=== PATIENT | female | born 1995 | race Caucasian/White ===

== ENCOUNTER 2017-04-01 13:22 | Outpatient (RCR) | payer OTHER ==
[2017-04-01 09:42] LABS: PLATELET COUNT, AUTOMATED 330 K/uL (150-450)
[2017-04-01 11:01] LABS: LDL CHOLESTEROL 126 mg/dl
[~2017-04-01 13:22] MED LIST: AZIT-1 PO; BUPR200T18 PO; DOCU-202 PO; PER PO; PRED20TA6 PO; Return to work; TRAZ150T8 PO; [UNRECOGNIZED DRUG - SUPPLY]
--- NOTE | 2017-04-05 17:31 | RADIOLOGY IMAGING REPORT ---
FACILITY: [facility] - [place] PATIENT NAME: Armin Coto : 1995 MR: [id number] V: [id number] EXAM DATE: ORDERING PHYSICIAN: DAVID BURRIS TECHNOLOGIST: Location: [facility] - [place] Patient: Armin Coto : 1995 Visit/Account:[id number] Date of Sevice: 04/05/2017 TRANSVAGINAL NON-OB HISTORY: Pelvic pain, urinary tract alignment surgery TECHNIQUE: Transvaginal ultrasound pelvis. COMPARISON: None. FINDINGS: Uterus: ; 6.6 cm length x 3.2 cm AP x 5.2 cm transverse. Myometrium: Unremarkable. Endometrium: Is an IUD that appears to been good position within the endometrial canal.; double thick ness 5.6 mm. Cervix: Grossly negative. Ovaries: Right - 4.7 x 2.6 x 4.9 cm. There are two simple cysts in the right ovary one measuring 2.4 devan ters in diameter one measuring 1.5 cm in diameter Left - 3.7 x 3.2 x 2.7 cm Blood flow is documented in each ovary by duplex Doppler ultrasound. Adnexa: Grossly unremarkable. Free pelvic fluid: None. IMPRESSION: IUD appears to be in good position within the endometrial canal. There are two simple right ovarian cysts measuring 2.4 cm and 1.5 cm in diameter Report Dictated By: Lise Khan MD at 04/05/2017 4:55 PM Report E-Signed By: Lise Khan MD at 04/05/2017 5:26 PM [id number]
== END 2017-04-05 18:00 | disposition home or self-care (01) ==
LOC: EDSTATUS 13:22 → US 13:22
PROVIDERS: ATTEND Nurse Practitioner Primary Care
DX: R10.2 Pelvic and perineal pain (principal); Z97.5 Presence of (intrauterine) contraceptive device; N83.201 Unspecified ovarian cyst, right side
CPT/HCPCS: 36415; 76830; 82040; 82247; 82310; 82374; 82435; 82465; 82565; 82627; 82947; 83718; 84075; 84132; 84146; 84155; 84295; 84403; 84439; 84443; 84450; 84460; 84478; 84480; 84520; 84703; 85025

== ENCOUNTER → 2017-04-13 | Outpatient (CLI) | payer OTHER | LOC: LAB 10:09 | PROVIDERS: ATTEND Nurse Practitioner Primary Care | DX: E05.90 Thyrotoxicosis, unspecified without thyrotoxic crisis or storm (principal) | CPT/HCPCS: 36415; 86376; 86800 ==

== ENCOUNTER → 2017-04-26 | Outpatient (CLI) | payer OTHER | LOC: LAB 16:41 | PROVIDERS: ATTEND Surgery | DX: D22.4 Melanocytic nevi of scalp and neck (principal) | CPT/HCPCS: 88305 ==

== ENCOUNTER 2017-05-04 00:55 | Outpatient (RCR) | payer OTHER ==
--- NOTE | 2017-05-05 16:56 | RADIOLOGY IMAGING REPORT ---
FACILITY: [facility] - [place] PATIENT NAME: Armin Coto : 1995 MR: [id number] V: [id number] EXAM DATE: ORDERING PHYSICIAN: DAVID BURRIS TECHNOLOGIST: Location: [facility] [place] Patient: Armin Coto : 1995 Visit/Account:[id number] Date of Sevice: 05/04/2017 EXAMINATION: Nuclear medicine thyroid uptake and scan HISTORY: Hyperthyroidism. COMPARISON: None. TECHNIQUE: 355 microcuries I-123 were administered orally. Radioiodine uptake values were calculated at 24 hours following tracer administration. Gamma camera images were obtained of the neck in variou s orientations. FINDINGS: Thyroid radioiodine uptake at 6 hours is 11% (normal range 8-15%). Thyroid radioiodine uptake at 24 hours is 21% (normal range 10-30%). Homogeneous uptake without hot or cold nodules. Thyroid size appears normal. IMPRESSION: Normal thyroid uptake and scan. Report Dictated By: Alea Corey MD at 05/05/2017 4:47 PM Report E-Signed By: Alea Corey MD at 05/05/2017 4:51 PM WSN:[id number]
== END 2017-05-04 18:00 | disposition home or self-care (01) ==
LOC: NUC 00:55 → EDSTATUS 09:46 → NUC 18:00
PROVIDERS: ATTEND Nurse Practitioner Primary Care
DX: E05.90 Thyrotoxicosis, unspecified without thyrotoxic crisis or storm (principal)
CPT/HCPCS: 78014; A9516